=== PATIENT | male | born 1975 | race Caucasian/White ===

== ENCOUNTER 2020-01-02 17:07 | Emergency (ER) | payer MEDICAID ==
[~2020-01-02] VITALS: Ht 193 cm; Wt 92.0 kg
[2020-01-02 17:12] VITALS: BP 146/98
--- NOTE | 2020-01-02 17:45 | NUR ---
Ice Pack Applied To Elbow
[2020-01-02] MEDS ORDERED: naproxen 500mg tablet PO ONE (18:25)
[2020-01-02] MEDS ORDERED: NAPR-56 PO (20:22)
[2020-01-02] MEDS ORDERED: ACET-3068 PO (20:22)
== END 2020-01-02 20:34 | disposition home or self-care (01) ==
LOC: ER 17:08
DX: S46.211A Strain of muscle, fascia and tendon of other parts of biceps, right arm, initial encounter (principal); F41.9 Anxiety disorder, unspecified; F12.90 Cannabis use, unspecified, uncomplicated; Z88.0 Allergy status to penicillin; Z88.8 Allergy status to other drugs, medicaments and biological substances; Z79.899 Other long term (current) drug therapy; Y93.89 Activity, other specified; Y92.89 Other specified places as the place of occurrence of the external cause; Y99.8 Other external cause status
CPT/HCPCS: 73080; 99283